=== PATIENT | female | born 1975 | race American Indian/Alaskan Native ===

== ENCOUNTER 2021-04-22 13:59 | Emergency (ER) | payer SELFPAY ==
[2021-04-22 15:59] LABS: Bilirubin,Urine NEG (Negative); Blood,Urine NEG (Negative); Color,Urine Yellow (Yellow); Protein,Urine <15 mg/dL mg/dL (Negative); Urobilinogen,Urine < 2.0 mg/dL (<2.0)
[2021-04-22 16:01] LABS: HCG Qualitative,Urine Negative (Negative)
--- NOTE | 2021-04-22 16:01 | Emergency Department Report ---
ED Female HPI - General Chief complaint: Urogenital-Female Stated complaint: POSSIBLE UTI Time Seen by Provider: 04/22/21 15:23 Source: patient Mode of arrival: Ambulatory Limitations: No Limitations - History of Present Illness Initial comments: Patient is a 45-year-old female presents emergency room complaints of "UTI." She states that she began having lower abdominal pain one month ago. She has associated dark urine, odor to her urine, urinary frequency. She denies any dysuria, nausea, vomiting, diarrhea, vaginal bleeding, vaginal discharge. She states that she is only sexual active with one partner and denies any concerns for STDs. PMHx none. allergy PCN, morphine. pt had a partial hysterectomy. - Related Data Previous Rx's Medication Instructions Recorded Last Taken Type Ciprofloxacin HCl [Ciprofloxacin 500 mg PO BID 7 Days #28 tablet 04/22/21 Unknown Rx TAB] Naproxen 375 mg PO BID PRN #14 tablet 04/22/21 Unknown Rx Allergies Allergy/AdvReac Type Severity Reaction Status Date / Time morphine Allergy Rash Verified 04/22/21 15:21 Penicillins Allergy Rash Verified 04/22/21 15:21 ED Review of Systems ROS: Stated complaint: POSSIBLE UTI Other details as noted in HPI Comment: All other systems reviewed and negative ED Past Medical Hx - Past Medical History Previous Medical History?: No - Surgical History Past Surgical History?: No - Medications Home Medications: Home Medications Medication Instructions Recorded Confirmed Last Taken Type Ciprofloxacin HCl [Ciprofloxacin 500 mg PO BID 7 Days #28 tablet 04/22/21 Unknown Rx TAB] Naproxen 375 mg PO BID PRN #14 tablet 04/22/21 Unknown Rx ED Physical Exam - General Limitations: No Limitations General appearance: alert, in no apparent distress - Head Head exam: Present: atraumatic, normocephalic - Eye Eye exam: Present: normal appearance - ENT ENT exam: Present: mucous membranes moist - Respiratory Respiratory exam: Present: normal lung sounds bilaterally. Absent: respiratory distress, wheezes, rales, rhonchi, stridor, chest wall tenderness, accessory muscle use, decreased breath sounds, prolonged expiratory - Cardiovascular Cardiovascular Exam: Present: regular rate, normal rhythm, normal heart sounds. Absent: systolic murmur, diastolic murmur, rubs, gallop - GI/Abdominal GI/Abdominal exam: Present: soft, normal bowel sounds. Absent: distended, tenderness, guarding, rebound, rigid - Neurological Exam Neurological exam: Present: alert, oriented X3 - Psychiatric Psychiatric exam: Present: normal affect, normal mood - Skin Skin exam: Present: warm, dry, intact ED Course Vital Signs 04/22/21 04/22/21 15:18 18:08 Temperature 98.6 F 98.5 F Pulse Rate 74 63 Respiratory 18 12 Rate Blood Pressure 148/97 Blood Pressure 131/75 [Right] O2 Sat by Pulse 100 99 Oximetry ED Medical Decision Making - Lab Data Vital Signs (72 hours) 04/22/21 04/22/21 15:18 18:08 Temperature 98.6 F 98.5 F Pulse Rate 74 63 Respiratory 18 12 Rate Blood Pressure 148/97 Blood Pressure 131/75 [Right] O2 Sat by Pulse 100 99 Oximetry - Medical Decision Making Patient is a 45-year-old female presents emergency room complaints of "UTI." She states that she began having lower abdominal pain one month ago. She has associated dark urine, odor to her urine, urinary frequency. She denies any dysuria, nausea, vomiting, diarrhea, vaginal bleeding, vaginal discharge. She states that she is only sexual active with one partner and denies any concerns for STDs. PMHx none. allergy PCN, morphine. pt had a partial hysterectomy. vss. no abd ttp or CVAT on exam. UA shows evidence of UTI. pt given prescription for medications. advised pt Please take medication as prescribed. Increase your fluid intake. Follow-up with a primary care doctor. Follow-up with [facility]. Return to emergency room for any new or worsening symptoms. Critical care attestation.: If time is entered above; I have spent that time in minutes in the direct care of this critically ill patient, excluding procedure time. ED Disposition Clinical Impression: UTI (urinary tract infection) Qualifiers: Urinary tract infection type: acute cystitis Hematuria presence: without hematuria Qualified Code(s): N30.00 - Acute cystitis without hematuria Disposition: HOME / SELF CARE / HOMELESS Is pt being admited?: No Does the pt Need Aspirin: No Condition: Stable Instructions: Urinary Tract Infection, Adult, [id number] Additional Instructions: Please take medication as prescribed. Increase your fluid intake. Follow-up with a primary care doctor. Follow-up with [facility]. Return to emergency room for any new or worsening symptoms. Prescriptions: Ciprofloxacin HCl [Ciprofloxacin TAB] 500 mg PO BID 7 Days #28 tablet Naproxen 375 mg PO BID PRN #14 tablet PRN Reason: pain Referrals: [facility] [Provider Group] - 3-5 Days DIMA SCHAFFER MD [Staff Physician] - 3-5 Days Time of Disposition: 16:05 Print Language: UKRAINIAN
[2021-04-22 18:09] VITALS: BP 131/75
== END 2021-04-22 18:08 | disposition home or self-care (01) ==
LOC: ED 13:59
DX: N39.0 Urinary tract infection, site not specified (principal); Z88.5 Allergy status to narcotic agent; Z88.0 Allergy status to penicillin
CPT/HCPCS: 81001; 81025; 87076; 87086; 87186; 99283